=== PATIENT | male | born 1950 ===

== ENCOUNTER 2019-01-10 12:07 | Observation (INO) ==
[2019-01-10 12:55] LABS: Bilirubin,Urine Negative (Negative); Blood,Urine Trace (Negative); Clarity,Urine Clear (Clear); Color,Urine Yellow (Yellow); Glucose,Urine (UA) Normal (Normal); Ketones,Urine Negative (Negative); Leukocyte Esterase,Urine Negative (Negative); Nitrite,Urine Negative (Negative); PH,Urine 6.5 pH Units (5.0-8.0); Protein,Urine Trace mg/dL (Neg-Trace); Specific Gravity,Urine 1.021 (1.010-1.025); Urobilinogen,Urine Normal (Normal)
[2019-01-10 12:57] LABS: Bacteria,Urine None Seen per hpf (None-Few); Hyaline Casts,Urine None Seen per lpf (None-Few); Squamous Epithelial Cell,Urine Moderate per lpf (None-Few)
[2019-01-10] MEDS ORDERED: Ondansetron 4 MG/2 ML VIAL IVP ONE (13:01)
[2019-01-10] MEDS ORDERED: 0.9 % Sodium Chloride 1,000 ML IVC ONE (13:01)
--- NOTE | 2019-01-10 13:01 | Emergency Department Note ---
Disposition Clinical Impression: Ureteral stone, Renal colic Disposition: Admitted As Inpatient Condition: Fair Referrals: Edson Clarke DO [Primary Care Provider] - Forms: ED Satisfaction Letter, Work/School Release Time of Disposition: 16:02 General Adult HPI - General Chief complaint: ED Abdominal Pain Stated complaint: Right Flank pain Time Seen by Provider: 01/10/19 12:15 Source: patient Limitations: no limitations Nursing Notes Reviewed: Yes Vital Signs Reviewed: Yes - History of Present Illness HPI Narrative: Male patient presenting to emergency department complaining of right flank pain. States this is been going on for several days. Was seen by his primary care physician and had a CT of his abdomen done on January 06. This did show a 4 mm ureteral stone. States that the pain was okay and tolerable at home however last night got severe. Complains that it was worse this morning as well. Does report some nausea associated with this. Denies any fevers or chills. States he does have a history of kidney stones but does not report fever is over had to have one removed. Was not given any medication for this but has been taking Motrin at home. He states that he threw up the Motrin this morning. Pain Scale: 6 - Related Data Allergies Allergy/AdvReac Type Severity Reaction Status Date / Time No Known Allergies Allergy Verified 06/07/18 13:10 All systems ED: reviewed and negative except as stated. Review of Systems: As Per HPI Constitutional: Denies: fever, chills Cardiovascular: Denies: chest pain Respiratory: Denies: cough, dyspnea Gastrointestinal: Reports: abdominal pain (Right flank), nausea, vomiting (Nonbloody nonbilious) Genitourinary: Denies: urgency, dysuria, frequency Musculoskeletal: Reports: back pain (Right-sided) Past Medical History - Past Medical History Attestation: Yes The following information was validated with the patient. Source: patient Medical history: Reports: arthritis, hypertension, kidney stones Surgical history: Reports: herniorrhaphy Psychiatric history: Reports: no psych history - Social History Smoking Status: Never smoker Smokeless Tobacco Status: No Alcohol use: Reports: none Drug use: Reports: none Physical Exam - General Limitations: no limitations General appearance: alert, in no apparent distress - Head Head exam: atraumatic, normocephalic, normal inspection - Eye Eye exam: Present: normal appearance, PERRL, EOMI - ENT ENT exam: normal exam, normal oropharynx, mucous membranes moist - Neck Neck exam: Present: normal inspection, full ROM, trachea midline - Chest Chest inspection: Present: normal inspection, symmetric chest wall rise - Respiratory Respiratory exam: Present: normal lung sounds bilaterally. Absent: respiratory distress, accessory muscle use - Cardiovascular Cardiovascular exam: Present: regular rate, normal rhythm, normal heart sounds - Abdominal Exam Abdominal exam: Present: soft, tenderness (Right flank). Absent: distention, guarding, rebound, rigidity, organomegaly, Meek's sign, Rovsing's sign, tenderness at McBurney's Point - Extremities Exam Extremities exam: Present: normal inspection, full ROM. Absent: tenderness, pedal edema - Back Exam Back exam: Present: normal inspection, full ROM, CVA tenderness (R). Absent: tenderness - Neurological Exam Neurological exam: Present: alert, oriented X3 - Psychiatric Psychiatric exam: Present: normal affect, normal mood - Skin Skin exam: Present: warm, dry, intact, normal color Course Course Narrative: Patient appears well resting in bed. Does have right flank and right CVA tenderness. Does have a CT from January 06 which showed a ureteral stone. Mentating appropriately stable vitals. 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 This was a long discussion with him and stated that he cannot drive on this medication. States that he did get a hold of ur ology this morning but the earliest appointment he could get was February 03. States that he does not believe he can go with the pain until then. Was concerned about his increasing pain. We discussed the case with Dr. Scott who states that the patient could be admitted this evening for possible removal of the stone tomorrow. Or go home on pain medication. The patient states that he would like to stay tonight. We will provide patient with pain medication and continue to monitor. Urinalysis with no signs of infection. Patient's creatinine is elevated with a low GFR. He was given a liter of fluid. - Consultations Consultation #1: Dr Quintanilla accepted Pt in stable condition. Time: 16:02 Vital Signs Temperature 98.5 F 01/10/19 12:15 Pulse Rate 73 01/10/19 12:15 Respiratory Rate 16 01/10/19 12:15 Blood Pressure 163/114 01/10/19 12:15 O2 Sat by Pulse Oximetry 96 01/10/19 12:15 Temperature 98.5 F 01/10/19 12:15 Pulse Rate 73 01/10/19 12:15 Respiratory Rate 16 01/10/19 12:15 Blood Pressure 163/114 01/10/19 12:15 O2 Sat by Pulse Oximetry 96 01/10/19 12:15 Oxygen Delivery Oxygen Delivery Room Air Medical Decision Making - Medical Records Medical records reviewed: Yes I reviewed the patient's medical records. - Lab Data Lab results reviewed: Yes I reviewed the patient's lab results. Result diagrams: 01/10/19 13:20 Lab Results 01/10/19 01/10/19 Range/Units 12:20 13:20 Sodium 138 (136-145) mEq/L Potassium 3.5 (3.5-5.1) mEq/L Chloride 101 (98-107) mEq/L Carbon Dioxide 32 H (23-29) mEq/L BUN 16 (8-23) mg/dL Creatinine 1.47 H (0.70-1.30) mg/dL Est GFR ( Amer) 57 L (> 60) Est GFR (Non-Af Amer) 47 L (> 60) BUN/Creatinine Ratio 11 (6-26) Glucose 126 H (70-105) mg/dL Calculated Osmolality 289 (280-300) Calcium 10.3 (8.6-10.3) mg/dL Urine Color Yellow (Yellow) Urine Clarity Clear (Clear) Urine pH 6.5 (5.0-8.0) pH Units Ur Specific [place] 1.021 (1.010-1.025) Urine Protein Trace (Neg-Trace) mg/dL Urine Glucose (UA) Normal (Normal) mg/dL Urine Ketones Negative (Negative) mg/dL Urine Blood Trace H (Negative) Urine Nitrite Negative (Negative) Urine Bilirubin Negative (Negative) Urine Urobilinogen Normal (Normal) mg/dL Ur Leukocyte Esterase Negative (Negative) Urine Microscopic RBC 5-15 H (0-3) per hpf Urine Microscopic WBC 3-5 H (0-3) per hpf Ur Squamous Epith Cells Moderate H (None-Few) per lpf Urine Bacteria None Seen (None-Few) per hpf Hyaline Casts None Seen (None-Few) per lpf Ur Culture Indicated? NO (NO) Attestation Statement - Attestation Attestation: IQasim DO, examined this patient [id number] and my medical decision-making was reviewed with Dr. Kristy Littlejohn, Resident Physician. I agree with the documented findings, disposition and treatment plan as described except to the extent set forth below. I personally supervised and was present for the roberson/critical portions of the procedures completed by the resident documented below. Please see my progress notes for details.
[2019-01-10] MEDS ORDERED: *HR* FentaNYL (PF) 100 MCG/2 ML VIAL IVP ONE ×2 (13:45→16:11)
--- NOTE | 2019-01-10 13:51 | Emergency Department Note ---
Disposition Clinical Impression: Ureteral stone, Renal colic Disposition: Admitted As Inpatient Condition: Fair Referrals: Edson Clarke DO [Primary Care Provider] - Forms: ED Satisfaction Letter, Work/School Release Time of Disposition: 16:03 Abdominal Pain HPI - General Chief Complaint: ED Abdominal Pain Stated Complaint: Right Flank pain Time Seen by Provider: 01/10/19 12:15 Source: patient - History of Present Illness Pain Scale: 6 - Related Data Allergies Allergy/AdvReac Type Severity Reaction Status Date / Time No Known Allergies Allergy Verified 06/07/18 13:10 Abdominal Pain PMH - Past Medical History Medical history: Reports: arthritis, hypertension, kidney stones Male Surgical History: Reports: Tonsillectomy Psychiatric history: Reports: no psych history - Social History Smoking status: Never smoker Alcohol use: Reports: none Drug use: Reports: none Physical Exam - General Limitations: no limitations General appearance: alert Course Vital Signs Temperature 98.5 F 01/10/19 12:15 Pulse Rate 73 01/10/19 12:15 Respiratory Rate 16 01/10/19 12:15 Blood Pressure 163/114 01/10/19 12:15 O2 Sat by Pulse Oximetry 96 01/10/19 12:15 Temperature 98.5 F 01/10/19 12:15 Pulse Rate 73 01/10/19 12:15 Respiratory Rate 16 01/10/19 12:15 Blood Pressure 163/114 01/10/19 12:15 O2 Sat by Pulse Oximetry 96 01/10/19 12:15 Oxygen Delivery Oxygen Delivery Room Air Abdominal Pain - Lab Data Result diagrams: 01/10/19 13:20 Lab Results 01/10/19 01/10/19 Range/Units 12:20 13:20 Sodium 138 (136-145) mEq/L Potassium 3.5 (3.5-5.1) mEq/L Chloride 101 (98-107) mEq/L Carbon Dioxide 32 H (23-29) mEq/L BUN 16 (8-23) mg/dL Creatinine 1.47 H (0.70-1.30) mg/dL Est GFR ( Amer) 57 L (> 60) Est GFR (Non-Af Amer) 47 L (> 60) BUN/Creatinine Ratio 11 (6-26) Glucose 126 H (70-105) mg/dL Calculated Osmolality 289 (280-300) Calcium 10.3 (8.6-10.3) mg/dL Urine Color Yellow (Yellow) Urine Clarity Clear (Clear) Urine pH 6.5 (5.0-8.0) pH Units Ur Specific [place] 1.021 (1.010-1.025) Urine Protein Trace (Neg-Trace) mg/dL Urine Glucose (UA) Normal (Normal) mg/dL Urine Ketones Negative (Negative) mg/dL Urine Blood Trace H (Negative) Urine Nitrite Negative (Negative) Urine Bilirubin Negative (Negative) Urine Urobilinogen Normal (Normal) mg/dL Ur Leukocyte Esterase Negative (Negative) Urine Microscopic RBC 5-15 H (0-3) per hpf Urine Microscopic WBC 3-5 H (0-3) per hpf Ur Squamous Epith Cells Moderate H (None-Few) per lpf Urine Bacteria None Seen (None-Few) per hpf Hyaline Casts None Seen (None-Few) per lpf Ur Culture Indicated? NO (NO) Attestation Statement - Attestation Attestation: I, Qasim Tsang DO, examined this patient [id number] and my medical decision-making was reviewed with Dr. Kristy Littlejohn, Resident Physician. I agree with the documented findings, disposition and treatment plan as described except to the extent set forth below. I personally supervised and was present for the roberson/critical portions of the procedures completed by the resident documented below. Please see my progress notes for details. 68-year-old male presents emergency room for evaluation of flank pain. Patient's had this on and off for the last several weeks. He was seen by his primary care provider and had a CT of his abdomen ordered at that time. He was completed yesterday. CT confirms a midureteral stone. Patient has not been taking any pain medication. The symptoms at home. Patient denies any recent falls trauma or injury. Currently denying chest pain shortness of breath fevers chills. Has not had any burning with urination or blood in his urine here today. Patient is otherwise currently stable. His last kidney stone was over 20 years ago. Vital signs are reviewed and are unremarkable. Lungs are clear heart is regular. Abdomen is soft but no point tenderness guarding rigidity or peritoneal symptoms at this time. Patient is otherwise asymptomatic. Patient was initially denying pain medications considering he did not have a ride. Fluids nausea medication will be given. Evaluation for renal function will be collected along with urinalysis. At this time, there is no acute need for repeat imaging modality. Patient is otherwise stable. Disposition to be determined. See detailed documentation of the physical exam, medical intervention, medical decision-making and disposition in the resident physician's note. No critical care applied the patient's treatment course at this time 1345 Patient now says that he recalls to get her to come for chemotherapy. Pain medication will be ordered at this time assuming help with the symptoms disposition to be determined. [id number] Patient still refused to have his pain medication provided. He did have acute renal insufficiency and fluids have been given to him here in the emergency department. Contact was made with the on-call urologist Dr. Scott. He recommended the patient can either follow-up in outpatient setting tomorrow morning would be admitted for symptom control and possible lithotripsy tomorrow. This information was discussed with the patient the bedside. He is requesting to be admitted at this time. Patient will be discussed with the hospitals for admission and consultation urology. Patient is otherwise currently stable. Hospitalist was reviewed the case at length. Dr. Blackburnki No other recommendations or concerns at this time. Patient is otherwise stable. He will be monitored here in the emergency department until admission process is completed.
[2019-01-10 14:01] LABS: Calcium 10.3 mg/dL (8.6-10.3); Potassium 3.5 mEq/L (3.5-5.1)
[2019-01-10] MEDS ORDERED: Ondansetron 4 MG/2 ML VIAL IVP PRN (16:27)
[2019-01-10] MEDS ORDERED: Naloxone 0.4 MG/ML INJ IVP PRN (16:27)
[2019-01-10] MEDS ORDERED: *HR* HYDROcodone/Acet 5/325 mg TABLET PO PRN (16:27)
--- NOTE | 2019-01-10 16:36 | Internal Med History&Physical ---
Date of Encounter: 01/10/19 Time of Encounter: 16:00 Internal Medicine - H&P: HPI Chief complaint: abdominal pain Admitted From: Home Plans for Post Hospital Care: Home History of present illness: Mr. Douglas is a 68 year old male with hx of HTN, nephrolithiasis who came in to the hospital due to right flank and abdominal pain started few weeks ago and go worse yesterday night. His pain is right-sided, non-radiating, 8/10,intermittent, associated with nasusea and two episodes of non-bloody vomiting. His PCP ordered CT abdomen which revealed 4 mm mid right ureteral calculus with mild hydroureteronephrosis, he also has mild prostatic hypertrophy and nonobstructing left renal calculi. He denies fever, chills, night sweats, hematuria, dysuria or polyuria. Indicated, she was hemodynamically stable, afebrile. He was given IV fluids, fentanyl and Zofran in the ED Past Med Surg Social Fam HX - Past Medical History Medical history: arthritis, hypertension, kidney stones Additional medical history: stomach ulcers, MAGI Psychiatric history: no psych history - Past Surgical History Surgical History: herniorrhaphy Additional surgical history: tonsillectomy - Social History Smoking Status: Never smoker Smokeless Tobacco Status: No Alcohol use: none Drug use: none Occupational status: employed Current living situation: Home Activity Level: Independent ambulation Recent Out of Country Travel Within the Last 8 Weeks: No Exposure or Possible Exposure to Illness During Travel: No - Additional Family History Additional family history: Siblings had diabetes Internal Medicine - H&P: Meds Valsartan/Hydrochlorothiazide [Diovan Hct 80-12.5 mg Tablet] 1 each PO DAILY 01/10/19 [History] 3 Allergy/AdvReac Type Severity Reaction Status Date / Time No Known Allergies Allergy Verified 06/07/18 13:10 All Systems PM: A 10-system review of systems was performed and is negative for pertinent findings except as documented above in the HPI. - Constitutional Vitals: Temp Pulse Resp BP Pulse Ox 98.5 F 73 16 163/114 96 01/10/19 12:15 01/10/19 12:15 01/10/19 12:15 01/10/19 12:15 01/10/19 12:15 Exam: General: Patient is alert, oriented 3. Head: Atraumatic, normal inspection, normocephalic. Eye: EOMI, PERRLA, ENT: Mucous membranes moist. Neck: Normal inspection, no meningismus. Respiratory: No respiratory distress, rhonchi, or wheezes noted. Cardiovascular: Regular rate and regular rhythm, S1 and S2 audible. No murmurs, rubs, or gallops. GI: Soft, nondistended, normal bowel sounds. : No CVA tenderness Extremities:No joint swelling, pedal edema, or tenderness noted. Neurological: Alert, oriented 3, no focal deficits. Psychiatric: normal affect, normal mood. Skin: Dry, intact, warm. Normal color. No rashes. Internal Med - H&P Results - Labs CBC & Chem 7: 01/10/19 13:20 Labs: BMP 01/10/19 13:20 Sodium 138 Potassium 3.5 Chloride 101 Carbon Dioxide 32 H BUN 16 Creatinine 1.47 H Glucose 126 H Calcium 10.3 Urine 01/10/19 Range/Units 12:20 Urine Color Yellow (Yellow) Urine Clarity Clear (Clear) Urine pH 6.5 (5.0-8.0) pH Units Ur Specific [place] 1.021 (1.010-1.025) Urine Protein Trace (Neg-Trace) mg/dL Urine Glucose (UA) Normal (Normal) mg/dL - Assessment and Plan (1) Hydronephrosis Current Visit: Yes Status: Acute Qualifiers: Hydronephrosis type: with ureteral calculous obstruction Qualified Code(s): N13.2 - Hydronephrosis with renal and ureteral calculous obstruction (2) Hypertension Current Visit: Yes Status: Chronic Qualifiers: Hypertension type: essential hypertension Qualified Code(s): I10 - Essential (primary) hypertension (3) NESTOR (acute kidney injury) Current Visit: Yes Status: Acute (4) Ureteral stone Current Visit: Yes Status: Acute - Summary of Assessment and Plan Summary of Assessment and Plan: 68-year-old male with history of nephrolithiasis and hypertension who came to the hospital with right flank pain. His symptoms are managed as following: Nephrolithiasis with hydronephrosis: Urology is consulted, possible intervention tomorrow. Nothing by mouth after midnight. Continue IV fluids and pain management. Zofran for nausea NESTOR: Creatinine baseline is 0.9, likely prerenal. Continue IV fluids. Check BMP tomorrow. Hold hydrochlorothiazide and valsartan. HTN: Old hydrochlorothiazide and valsartan, hydralazine when necessary for systolic blood pressure above 180. DVT prophylaxis: Heparin SC - Time Spent With Patient Total time spent is greater than 50% in coordination of care (as documented) at patient's floor/unit and/or counseling patient:
[2019-01-10] MEDS: Ringers Solution, Lactated 1,000 ML IVC SCH (17:11)
[2019-01-10] MEDS: *HR* Heparin 5,000 UNIT/ML VIAL SQ SCH (17:11)
[2019-01-10] MEDS: Acetaminophen 325 MG TABLET PO PRN (18:48)
[2019-01-11] MEDS: Ringers Solution, Lactated 1,000 ML IVC SCH (03:16)
[2019-01-11] MEDS ORDERED: Acetaminophen IV 1,000 MG/100 ML INFUS..BTL IVPB ONE (04:17)
[2019-01-11 04:24] LABS: Hematocrit 42.4 % (37.5-50.1); Hemoglobin 13.6 g/dL (12.9-16.9); Mean Corpuscular HGB Conc 32.1 g/dL (31.6-35.5); Mean Corpuscular Hemoglobin 29.9 pg (28.0-33.3); Mean Corpuscular Volume 93.2 fL (83.0-100.0); Mean Platelet Volume 10.8 fL (9.4-12.4); Platelet Count 188 K/mcL (140-400); Red Blood Count 4.55 M/mcL (4.19-5.50); Red Cell Distribution Width 12.8 % (11.5-14.5); White Blood Count 8.2 K/mcL (4.3-11.1)
[2019-01-11 04:43] LABS: BUN/Creatinine Ratio 12 (6-26); Blood Urea Nitrogen 15 mg/dL (8-23); Calcium 9.3 mg/dL (8.6-10.3); Carbon Dioxide 25 mEq/L (23-29); Chloride 106 mEq/L (98-107); Glucose 104 mg/dL (70-105); Osmolality,Calculated 289 (280-300); Potassium 3.5 mEq/L (3.5-5.1); Sodium 139 mEq/L (136-145); eGFR For African Americans > 60 (> 60); eGFR For Non-African Americans 55 (> 60)
[2019-01-11 04:45] LABS: Albumin 3.3 g/dL (3.5-5.7); Albumin/Globulin Ratio 1.5 (1.1-2.2); Bilirubin,Direct 0.2 mg/dL (0.0-0.2); Bilirubin,Indirect 0.6 mg/dL (0.0-1.2); Bilirubin,Total 0.8 mg/dL (0.3-1.0); Globulin 2.2 g/dL (2.4-3.5); Total Protein 5.5 g/dL (6.4-8.9)
[2019-01-11] MEDS: *HR* Heparin 5,000 UNIT/ML VIAL SQ SCH ×2 (05:51→18:51)
--- NOTE | 2019-01-11 08:19 | Urology - Consult Note ---
Date of Encounter: 01/11/19 Time of Encounter: 07:50 - Assessment and Plan (1) Nephrolithiasis Current Visit: Yes Status: Acute Assessment and plan: Patient is a 68-year-old male who presents with a left renal stone. Patient als o with right ureteral stone. Dr. Scott will discuss definitive stone extraction as well as nephrolithiasis workup at outpatient appointment. (2) NESTOR (acute kidney injury) Current Visit: Yes Status: Acute Assessment and plan: Patient is a 68-year-old male who presents with acute kidney injury. GFR was 47 on admission and is now improved to 55. Patient has obstructing right ureteral stone, and he is tentatively scheduled for surgery later today. Anticipate resolution of NESTOR. (3) Ureteral stone Current Visit: Yes Status: Acute Assessment and plan: Patient is a 68-year-old male who presents with a 4 mm right midureteral stone. Vital signs are stable and afebrile. We discussed surgical risks and benefits, and patient verbalized understanding. Patient signed consent, and he is prepared undergo a right ureteroscopic stone extraction with holmium laser lithotripsy, basket retrieval and right ureteral stent placement later this evening with Dr. Scott. Patient will remain nothing by mouth. Urology CN:HPI Consult date: 01/11/19 Reason for consult Urology: Other (right ureteral stone) Requesting physician: Holly Littlejohn History of present illness: Patient is a 68-year-old male who presents with a 4 mm right midureteral stone and left nephrolithiasis. Patient reports a 2 day history of severe right flank pain and lower abdominal pain. She presented to the emergency department where he underwent a CT the abdomen and pelvis revealing a 4 mm right midureteral stone and nonobstructing left nephrolithiasis. Patient states he has a remote history of renal stones proximally 20 years ago, and he passed that stone by medical expulsion. Patient admits to continued right flank pain, nausea, vomiting and chills, but he denies any gross hematuria, fever or dysuria. He denies any known family history of renal stones. Past Med Surg Social Fam HX - Past Medical History Medical history: arthritis, hypertension, kidney stones Additional medical history: stomach ulcers, MAGI Psychiatric history: no psych history - Past Surgical History Surgical History: herniorrhaphy Additional surgical history: tonsillectomy - Social History Smoking Status: Former smoker Smokeless Tobacco Status: No Alcohol use: rarely Drug use: none - Family History Mother Hx Family Endocrine Disorder: Yes (DM) Father Hx Family Endocrine Disorder: Yes (DM) Sister Hx Family Endocrine Disorder: Yes (DM) Medications and Allergies Valsartan/Hydrochlorothiazide [Diovan Hct 80-12.5 mg Tablet] 1 each PO DAILY 01/10/19 [History] Allergy/AdvReac Type Severity Reaction Status Date / Time No Known Allergies Allergy Verified 06/07/18 13:10 Review of Systems - Constitutional chills, fatigue, no fever(s) - EENT Nose, mouth and throat: no dizziness, no headache(s) - Cardiovascular no chest pain, no diaphoresis, no dyspnea - Respiratory no cough, no dyspnea - Gastrointestinal abdominal pain, nausea, vomiting - Genitourinary flank pain, no change in urinary stream, no difficulty urinating, no hematuria, no urinary frequency, no urinary hesitancy, no urinary incontinence, no urinary urgency - Musculoskeletal back pain, no muscle weakness - Integumentary no erythema, no rash - Neurological no confusion, no syncope - Psychiatric no anxiety, no confusion - Hematologic/Lymphatic no easy bleeding, no easy bruising - Allergic/Immunologic no throat swelling, no wheezing Exam Initial Vital Signs Temp Pulse Resp BP Pulse Ox 98.5 F 73 16 163/114 96 01/10/19 12:15 01/10/19 12:15 01/10/19 12:15 01/10/19 12:15 01/10/19 12:15 - General physical appearance Present: no distress, no pain - Eyes Present: PERRL, normal ocular movement - ENT Present: normal nares, no hearing loss, no congestion - Neck Present: no masses, trachea midline, no lymphadenopathy - Respiratory Present: normal respiratory effort - Cardiovascular Cardiovascular exam IM: RRR - Abdomen Abdomen: Present: soft, non tender. Absent: distended - Genitourinary other (No CVAT) - Integumentary Present: no rash, no abnormal pigmentation - Neurologic Present: normal coordination - Musculoskeletal Present: other (Normal posture) Urology Results - Labs 01/11/19 03:34 01/11/19 03:34 Abnormal lab results Carbon Dioxide 32 mEq/L (23-29) H 01/10/19 13:20 Creatinine 1.47 mg/dL (0.70-1.30) H 01/10/19 13:20 Est GFR ( Amer) 57 (> 60) L 01/10/19 13:20 Est GFR (Non-Af Amer) 55 (> 60) L 01/11/19 03:34 Glucose 126 mg/dL (70-105) H 01/10/19 13:20 Alkaline Phosphatase 118 Units/L (34-104) H 01/11/19 03:34 Serum Total Protein 5.5 g/dL (6.4-8.9) L 01/11/19 03:34 Albumin 3.3 g/dL (3.5-5.7) L 01/11/19 03:34 Globulin 2.2 g/dL (2.4-3.5) L 01/11/19 03:34 Urine Blood Trace (Negative) H 01/10/19 12:20 Urine Microscopic RBC 5-15 per hpf (0-3) H 01/10/19 12:20 Urine Microscopic WBC 3-5 per hpf (0-3) H 01/10/19 12:20 Ur Squamous Epith Cells Moderate per lpf (None-Few) H 01/10/19 12:20 Diabetes panel 01/10/19 01/11/19 01/11/19 Range/Units 13:20 03:34 03:34 Sodium 138 139 (136-145) mEq/L Potassium 3.5 3.5 (3.5-5.1) mEq/L Chloride 101 106 (98-107) mEq/L Carbon Dioxide 32 H 25 (23-29) mEq/L BUN 16 15 (8-23) mg/dL Creatinine 1.47 H 1.30 (0.70-1.30) mg/dL Glucose 126 H 104 (70-105) mg/dL Calcium 10.3 9.3 (8.6-10.3) mg/dL AST 14 (13-39) Units/L ALT 18 (7-52) Units/L Alkaline Phosphatase 118 H (34-104) Units/L Albumin 3.3 L (3.5-5.7) g/dL Calcium panel 01/10/19 01/11/19 01/11/19 Range/Units 13:20 03:34 03:34 Calcium 10.3 9.3 (8.6-10.3) mg/dL Albumin 3.3 L (3.5-5.7) g/dL Pituitary panel 01/10/19 01/11/19 Range/Units 13:20 03:34 Sodium 138 139 (136-145) mEq/L Potassium 3.5 3.5 (3.5-5.1) mEq/L Chloride 101 106 (98-107) mEq/L Carbon Dioxide 32 H 25 (23-29) mEq/L BUN 16 15 (8-23) mg/dL Creatinine 1.47 H 1.30 (0.70-1.30) mg/dL Glucose 126 H 104 (70-105) mg/dL Calcium 10.3 9.3 (8.6-10.3) mg/dL Adrenal panel 01/10/19 01/11/19 01/11/19 Range/Units 13:20 03:34 03:34 Sodium 138 139 (136-145) mEq/L Potassium 3.5 3.5 (3.5-5.1) mEq/L Chloride 101 106 (98-107) mEq/L Carbon Dioxide 32 H 25 (23-29) mEq/L BUN 16 15 (8-23) mg/dL Creatinine 1.47 H 1.30 (0.70-1.30) mg/dL Glucose 126 H 104 (70-105) mg/dL Calcium 10.3 9.3 (8.6-10.3) mg/dL Total Bilirubin 0.8 (0.3-1.0) mg/dL AST 14 (13-39) Units/L ALT 18 (7-52) Units/L Alkaline Phosphatase 118 H (34-104) Units/L Albumin 3.3 L (3.5-5.7) g/dL All other labs normal. - Imaging CT scan - abdomen: report reviewed, image reviewed CT scan - pelvis: report reviewed, image reviewed Consult Discharge Plan - Plan Referrals: Norberto Scott MD [Partnered Physician] - Edson Clarke DO [Primary Care Provider] -
[2019-01-11] MEDS: Acetaminophen 325 MG TABLET PO PRN (08:42)
--- NOTE | 2019-01-11 12:06 | Internal Med Progress Note ---
Hospitalist Progress Note - Encounter Date of Encounter: 01/11/19 Time of Encounter: 08:30 - Subjective Interval History: No major events overnight. Patient was seen this a.m. He denied fever, chills or night sweats. He has no nausea, vomiting but minimal abdominal pain. Patient denied chest pain, shortness of breath or palpitation. - Exam Vitals: Temp Pulse Resp BP Pulse Ox 98.0 F 62 16 152/93 94 01/11/19 10:46 01/11/19 10:46 01/11/19 10:46 01/11/19 10:46 01/11/19 10:46 Exam: General: Patient is alert, oriented 3. Head: Atraumatic, normal inspection, normocephalic. Eye: EOMI, PERRLA, ENT: Mucous membranes moist. Neck: Normal inspection, no meningismus. Respiratory: No respiratory distress, rhonchi, or wheezes noted. Cardiovascular: Regular rate and regular rhythm, S1 and S2 audible. No murmurs, rubs, or gallops. GI: Soft, nondistended, normal bowel sounds. : No CVA tenderness Extremities:No joint swelling, pedal edema, or tenderness noted. Neurological: Alert, oriented 3, no focal deficits. Psychiatric: normal affect, normal mood. Skin: Dry, intact, warm. Normal color. No rashes. - Assessment and Plan (1) Hydronephrosis Current Visit: Yes Status: Acute (2) Hypertension Current Visit: Yes Status: Chronic (3) NESTOR (acute kidney injury) Current Visit: Yes Status: Resolved (4) Ureteral stone Current Visit: Yes Status: Acute - Summary of Assessment and Plan Summary of Assessment and Plan: 68-year-old male with history of nephrolithiasis and hypertension who came to the hospital with right flank pain. His symptoms are managed as following: Nephrolithiasis with hydronephrosis: Urology is consulted, today to OR. Continue IV fluids and pain management. Zofran for nausea NESTOR: Resolved, Creatinine baseline is 0.9, likely prerenal. Continue IV fluids. Check BMP tomorrow. Keep hydrochlorothiazide and valsartan on hold. HTN: Old hydrochlorothiazide and valsartan, hydralazine when necessary for systolic blood pressure above 180. Disposition: Discharge tomorrow DVT prophylaxis: Heparin SC - Time Spent with Patient Total time spent is greater than 50% in coordination of care (as documented) at patient's floor/unit and/or counseling patient: Plan of Care Discussed with: patient Internal Medicine: Result - Labs CBC & Chem 7: 01/11/19 03:34 01/11/19 03:34 Labs: Short CBC 01/11/19 Range/Units 03:34 WBC 8.2 (4.3-11.1) K/mcL Hgb 13.6 (12.9-16.9) g/dL Hct 42.4 (37.5-50.1) % Plt Count 188 (140-400) K/mcL BMP 01/10/19 01/11/19 13:20 03:34 Sodium 138 139 Potassium 3.5 3.5 Chloride 101 106 Carbon Dioxide 32 H 25 BUN 16 15 Creatinine 1.47 H 1.30 Glucose 126 H 104 Calcium 10.3 9.3 Liver Function 01/11/19 Range/Units 03:34 Total Bilirubin 0.8 (0.3-1.0) mg/dL Direct Bilirubin 0.2 (0.0-0.2) mg/dL AST 14 (13-39) Units/L ALT 18 (7-52) Units/L Alkaline Phosphatase 118 H (34-104) Units/L Albumin 3.3 L (3.5-5.7) g/dL Urine 01/10/19 Range/Units 12:20 Urine Color Yellow (Yellow) Urine Clarity Clear (Clear) Urine pH 6.5 (5.0-8.0) pH Units Ur Specific [place] 1.021 (1.010-1.025) Urine Protein Trace (Neg-Trace) mg/dL Urine Glucose (UA) Normal (Normal) mg/dL Consult Discharge Plan - Plan Referrals: Norberto Scott MD [Partnered Physician] - Edson Clarke DO [Primary Care Provider] - (1) Hydronephrosis Qualifiers: Hydronephrosis type: with ureteral calculous obstruction Qualified Code(s): N13.2 - Hydronephrosis with renal and ureteral calculous obstruction (2) Hypertension Qualifiers: Hypertension type: essential hypertension Qualified Code(s): I10 - Essential (primary) hypertension
[2019-01-11] MEDS ORDERED: ceFAZolin 2,000 MG in Water for inj. (sterile) 20 ML IVP ONE ×2 (18:04→19:55)
--- NOTE | 2019-01-11 18:06 | Anesthesia Evaluation PreOp ---
Date of Encounter: 01/11/19 Time of Encounter: 18:00 - Past History Planned Operation: USE Right Cardiac History: HTN, Hyperlipidemia Pulmonary History: Denies Any Significant HX PROCESS LEAD History: Denies Any Significant HX Other Medical History: Other (Arthritis) Anesthesia History: No Prior Anesthetic Complications Alcohol Use: rarely Drug use: none Medications and Allergies Valsartan/Hydrochlorothiazide [Diovan Hct 80-12.5 mg Tablet] 1 each PO DAILY 01/10/19 [History] Allergy/AdvReac Type Severity Reaction Status Date / Time No Known Allergies Allergy Verified 06/07/18 13:10 - Meds/Allergy Pre-op Review Medications Reviewed: Yes Allergies Reviewed: Yes Beta Blockers on Current Med List: No Anesthesia Results - Labs 01/11/19 03:34 01/11/19 03:34 Anesthesia Exam Vital Signs/O2 Sat/Glucose, Most Current Temp Pulse Resp BP Pulse Ox 01/11/19 15:34 98.2 F 67 18 145/93 93 Height: 5'9 Weight: 193 lbs NPO (# of Hours): MN Pain Scale: 0 - HEENT Pupil (Motor): Pupils equal, EOMI Mallampati: II Teeth: Normal Oral Opening: Greater than 3 - PROCESS LEAD LOC: Oriented PROCESS LEAD Motor: Normal RUE, Normal LUE, Normal RLE, Normal LLE, Normal Face PROCESS LEAD Sensory: Normal: RUE, LUE, RLE, LLE, Face - Cardiac Rhythm: Regular Murmur: None JVD: No Carotid Bruit: No - Pulmonary Breath Sounds: bilateral Clear Respiratory Effort: Symmetrical Anesthesia Assess/Plan ASA Score: 2 Level of consciousness: Cooperative, Oriented Anesthetic Plan: General Autologous Blood: No Monitoring Plan: Standard Monitors Recovery Plan: PACU
[2019-01-11] MEDS ORDERED: Famotidine 20 MG/2 ML VIAL ONE (18:07)
[2019-01-11] MEDS ORDERED: Acetaminophen IV 1,000 MG/100 ML INFUS..BTL ONE (18:07)
[2019-01-11] MEDS ORDERED: Lidocaine -MPF 2% 2 ML VIAL ONE (18:26)
[2019-01-11] MEDS ORDERED: *HR* Propofol 200 MG/20 ML VIAL IVP ONE (18:26)
[2019-01-11] MEDS ORDERED: Ondansetron 4 MG/2 ML VIAL ONE (18:26)
[2019-01-11] MEDS ORDERED: *HR* FentaNYL (PF) 100 MCG/2 ML VIAL ONE (18:26)
[2019-01-11] MEDS ORDERED: Dexamethasone 4 MG/ML VIAL ONE (18:26)
[2019-01-11] MEDS ORDERED: *HR* PHENYLEPHRINE 1,000 MCG/10 ML SYRINGE IVP ONE (18:28)
[2019-01-11] MEDS ORDERED: Ondansetron 4 MG/2 ML VIAL IVP ONE (18:29)
[2019-01-11] MEDS ORDERED: *HR* OxyCODONE Immed Rel 5 MG TABLET PO PRN (18:29)
[2019-01-11] MEDS ORDERED: *HR* Promethazine 25 MG/ML VIAL IVP PRN (18:29)
--- NOTE | 2019-01-11 18:54 | Operative Note ---
Date of procedure: 01/11/19 Pre-op diagnosis: Right ureteral stone Post-op diagnosis: same Procedure: Right ureteroscopy, laser lithotripsy, basket stone extraction, and stent placement Implants: 6-Grenadian by 26 cm double-J stent Complications: None Anesthesia: MICKEY Surgeon: Norberto Scott Was there an dietetic assistant present: No Estimated blood loss (cc): 1 Specimen: right ureteral stone Condition: stable Disposition: PACU Procedure in Detail: Indications: Mr. Douglas is a 68-year-old gentleman who has a history of right flank pain. A CT scan showed a 4 mm stone in the proximal right ureter. He elected to undergo a right ureteroscopy, laser lithotripsy, and stent placement. He is aware of the risks of the procedure including but not limited to bleeding, infection, injury to other structures, need for further procedures, stent irritation, and the risk of anesthesia. He is willing to proceed. Procedure: After informed consent was obtained the patient was brought back to the operating room and placed in supine position. A time out was performed. General anesthesia was administered and an LMA was placed. He was then placed in the lithotomy position. He was prepped and draped in the usual sterile fashion. Cystoscopy was performed. The anterior urethra was normal. There was no evidence of bladder tumors. The ureteral orifices were in the normal orthotopic position. The Zip wire was placed in the right ureteral orifice. The wire did not move past the distal ureter. The 8-Grenadian portion of the 8/10-Grenadian ureteral dilator was inserted. The wire was replaced into the right ureter and with the support of the 8-Grenadian dilator, I was able to move the wire past the stone. The scope was removed. The ureter was dilated with the 8/10-Grenadian ureteral dilator. I then advanced the semirigid ureteroscope into the ureter. The stone was fragmented using the 365 micron laser fiber into small pieces. The stone fragments were basket extracted. A 6 Grenadian by 26cm JJ stent was then placed with good curl seen in the kidney and the bladder. The dangle string was left intact. The bladder was drained. The string was adhered to the penis using a Tegaderm. The patient was then awakened from general anesthesia and brought to recovery room in good condition. All sponge, needle, and instrument counts were correct.
--- NOTE | 2019-01-11 19:13 | Event Note ---
Date of Encounter: 01/11/19 Time of Encounter: 19:12 Patient be discharged home later today if he is feeling well. 1. The patient can remove the stent in 5 days by pulling up on the string. 2. He should expect to feel flank pain with voiding. 3. The patient should call for any fevers, chills, nausea, emesis, or uncontrolled pain. 4. Please provide a work excuse if necessary for up to 1 week off. 5. He can follow up in 3-4 weeks with a KUB.
--- NOTE | 2019-01-11 19:47 | Anesthesia Evaluation Post Op ---
Date of Encounter: 01/11/19 Time of Encounter: 19:45 - Vital Signs Vital Signs: Vital Signs/O2 Sat/Glucose, Most Current Temp Pulse Resp BP Pulse Ox 01/11/19 19:28 98.4 F 68 16 140/98 01/11/19 19:18 69 16 134/98 92 01/11/19 19:08 64 16 120/84 100 01/11/19 18:58 97.4 F L 59 20 130/90 99 - Lungs Lungs: Clear Ascult./Percussion - Airway Airway: Non-obstructed - Cardiovascular Regular Rate - Mental Status Mental Status: Alert & Oriented, Answers Appropriately - Pain Pain Scale: 0 - Nausea Vomiting Nausea Vomiting: Not Present - Hydration Hydration: Ice chips - Discharge PostOp Status: Transfer Patient to floor
[2019-01-11] MEDS ORDERED: Naloxone 0.4 MG/ML INJ IVP PRN (19:55)
[2019-01-11] MEDS ORDERED: Acetaminophen 325 MG TABLET PO PRN (19:55)
[2019-01-11] MEDS ORDERED: Ondansetron 4 MG/2 ML VIAL IVP PRN (19:55)
[2019-01-11] MEDS ORDERED: *HR* HYDROcodone/Acet 5/325 mg TABLET PO PRN (19:55)
[2019-01-12] MEDS ORDERED: *HR* Heparin 5,000 UNIT/ML VIAL SQ SCH (06:00)
[2019-01-12 06:41] VITALS: BP 138/93
[2019-01-12 07:01] LABS: BUN/Creatinine Ratio 15 (6-26); Blood Urea Nitrogen 16 mg/dL (8-23); Calcium 9.7 mg/dL (8.6-10.3); Carbon Dioxide 30 mEq/L (23-29); Chloride 104 mEq/L (98-107); Glucose 88 mg/dL (70-105); Osmolality,Calculated 293 (280-300); Potassium 3.8 mEq/L (3.5-5.1); Sodium 141 mEq/L (136-145); eGFR For African Americans > 60 (> 60); eGFR For Non-African Americans > 60 (> 60)
--- NOTE | 2019-01-12 08:07 | Discharge Summary ---
- NOTES TO OUTPATIENT PROVIDER Notes to Outpatient Provider: Patient was admitted for nephrolithiasis with hydronephrosis and acute kidney injury. He underwent stone extraction and stent placement by urology. Kidney injury improved and recheck BMP in 3-5 days. Recommend to stop hydrochlorothiazide as outpatient due to increased risk of kidney stones and acute kidney injury. Orders not resulted at time of discharge: Pending orders 01/11/19 19:13 Surgical Pathology [PTH] Routine Date of Encounter: 01/12/19 Time of Encounter: 08:20 - Discharge Diagnosis (1) Hydronephrosis Priority: Primary Status: Resolved Qualifiers: Hydronephrosis type: with ureteral calculous obstruction Qualified Code(s): N13.2 - Hydronephrosis with renal and ureteral calculous obstruction (2) Hypertension Priority: Secondary Status: Chronic Qualifiers: Hypertension type: essential hypertension Qualified Code(s): I10 - Essential (primary) hypertension (3) NESTOR (acute kidney injury) Priority: Secondary Status: Resolved (4) Ureteral stone Priority: Secondary Status: Acute Hospital course: Mr. Douglas is a 68 year old male with history of HTN who came into the hospital due to nephrolithiasis with hydronephrosis. He underwent stone extraction and stent placement by urology. His NESTOR resolved. He will be discharged home in stable condition to follow up with urology as outpatient in 2 weeks. Discharge discussed with: patient - Time Spent with Patient Total time spent providing and/or coordinating discharge services: 22 minutes - Discharge Medications Prescriptions: New HYDROcodone/Acet 5/325 mg [[place] 5-325 mg] 1 tab PO Q8HR PRN 4 Days #12 tablet PRN Reason: Moderate to severe Pain Continued Valsartan/Hydrochlorothiazide [Diovan Hct 80-12.5 mg Tablet] 1 each PO DAILY Home Medications: Valsartan/Hydrochlorothiazide [Diovan Hct 80-12.5 mg Tablet] 1 each PO DAILY [History] HYDROcodone/Acet 5/325 mg [[place] 5-325 mg] 1 tab PO Q8HR PRN 4 Days #12 tablet 01/12/19 [Rx] Allergies/Adverse Reactions: Allergy/AdvReac Type Severity Reaction Status Date / Time No Known Allergies Allergy Verified 06/07/18 13:10 Date of admission: 01/10/19 16:28 Primary care physician: Edson Clarke DO Consults: 01/10/19 15:55 Consult to Urology [CONS] Stat Consulting Provider: Urology Ciara Reason for Consult: uretal stone Call Completed: Yes - Constitutional Vitals: Temp Pulse Resp BP Pulse Ox 97.9 F 66 14 138/93 93 01/12/19 06:40 01/12/19 06:40 01/12/19 06:40 01/12/19 06:40 01/12/19 06:40 Exam: General: Patient is alert, oriented 3. Head: Atraumatic, normal inspection, normocephalic. Eye: EOMI, PERRLA, ENT: Mucous membranes moist. Neck: Normal inspection, Respiratory: No respiratory distress, rhonchi, or wheezes noted. Cardiovascular: Regular rate and regular rhythm, S1 and S2 audible. No murmurs, rubs, or gallops. GI: Soft, nondistended, normal bowel sounds. Extremities:No joint swelling, pedal edema, or tenderness noted. Neurological: Alert, oriented 3, no focal deficits. Psychiatric: normal affect, normal mood. Skin: Dry, intact, warm. Normal color. No rashes. - Patient Status Disposition: Home, Self-Care Condition: Good Functional capacity at discharge: independent ambulation Overall status at discharge: patient is back to baseline - Discharge Instructions Instructions: Ureteroscopy (DC), Lithotripsy for Removal of Kidney Stones (DC) Follow Up With: Norberto Scott MD [Partnered Physician] - Edson Clarke DO [Primary Care Provider] - - Diet and Activity Activity: resume usual activities as tolerated Diet: low salt diet
--- NOTE | 2019-01-12 08:58 | Urology Progress Note ---
Date of Encounter: 01/12/19 Time of Encounter: 08:00 - Assessment and Plan (1) Nephrolithiasis Current Visit: Yes Status: Acute (2) NESTOR (acute kidney injury) Current Visit: Yes Status: Resolved (3) Ureteral stone Current Visit: Yes Status: Acute Assessment and plan: Patient is a 68-year-old male who presents one day status post right ureteroscopy, laser lithotripsy, basket stone extraction, and stent placement. Vital signs are stable and afebrile, and patient is recovering well postope ratively. We discussed postoperative expectations with indwelling ureteral stent, and patient verbalized understanding. Patient will plan to self remove stent on 01/16/2019. Patient may be eligible for discharge from a urologic standpoint. Progress Note Subjective: no new complaints, feels better Narrative: POD #1. Patient seen and examined sitting upright in bed in no apparent distress. Patient reports he is tolerating normal diet without nausea or vomiting, and he is voiding well without difficulty. Patient reports flank pain is resolved. He denies any fever or chills. Objective Initial Vital Signs Temp Pulse Resp BP Pulse Ox 98.5 F 73 16 163/114 96 01/10/19 12:15 01/10/19 12:15 01/10/19 12:15 01/10/19 12:15 01/10/19 12:15 - General physical appearance Present: no distress, no pain - Respiratory Present: normal expansion, normal respiratory effort - Abdomen Present: soft, non tender. Absent: distended - Integumentary Present: no rash, no abnormal pigmentation - Musculoskeletal Present: normal posture - Psychiatric Present: oriented to time, oriented to person, oriented to place, speech is normal, memory intact - Labs 01/11/19 03:34 01/12/19 05:37 Diabetes panel 01/12/19 Range/Units 05:37 Sodium 141 (136-145) mEq/L Potassium 3.8 (3.5-5.1) mEq/L Chloride 104 (98-107) mEq/L Carbon Dioxide 30 H (23-29) mEq/L BUN 16 (8-23) mg/dL Creatinine 1.06 (0.70-1.30) mg/dL Glucose 88 (70-105) mg/dL Calcium 9.7 (8.6-10.3) mg/dL Calcium panel 01/12/19 Range/Units 05:37 Calcium 9.7 (8.6-10.3) mg/dL Pituitary panel 01/12/19 Range/Units 05:37 Sodium 141 (136-145) mEq/L Potassium 3.8 (3.5-5.1) mEq/L Chloride 104 (98-107) mEq/L Carbon Dioxide 30 H (23-29) mEq/L BUN 16 (8-23) mg/dL Creatinine 1.06 (0.70-1.30) mg/dL Glucose 88 (70-105) mg/dL Calcium 9.7 (8.6-10.3) mg/dL Adrenal panel 01/12/19 Range/Units 05:37 Sodium 141 (136-145) mEq/L Potassium 3.8 (3.5-5.1) mEq/L Chloride 104 (98-107) mEq/L Carbon Dioxide 30 H (23-29) mEq/L BUN 16 (8-23) mg/dL Creatinine 1.06 (0.70-1.30) mg/dL Glucose 88 (70-105) mg/dL Calcium 9.7 (8.6-10.3) mg/dL Consult Discharge Plan - Plan Instructions: Ureteroscopy (DC), Lithotripsy for Removal of Kidney Stones (DC) Referrals: Norberto Scott MD [Partnered Physician] - 01/27/19 9:00 am Edson Clarke DO [Primary Care Provider] - Prescriptions: HYDROcodone/Acet 5/325 mg [[place] 5-325 mg] 1 tab PO Q8HR PRN 4 Days #12 tablet PRN Reason: Moderate to severe Pain Prescription Printed
[2019-01-15 12:01] LABS: Calculi Mass 43 mg
== END 2019-01-12 10:40 | disposition home or self-care (01) ==
LOC: 3ANU 12:07 → EMEROOARM 12:07 → SUATTDRO 16:28 → 3ANU 16:55
PROVIDERS: ADMIT Internal Medicine; ATTEND Internal Medicine